=== PATIENT | male | born 1940 | race Two or more races ===

== ENCOUNTER 2021-09-06 08:50 | Outpatient (CLI) | payer MEDICARE, OTHER ==
[~2021-09-06 08:50] MED LIST: ATENOLOL; TRAM50TA2 PO
== END 2021-09-06 23:59 | disposition home or self-care (01) ==
LOC: WOU 08:50
PROVIDERS: ATTEND Specialist
DX: H91.21 Sudden idiopathic hearing loss, right ear (principal); R05.9 Cough, unspecified; I10 Essential (primary) hypertension
CPT/HCPCS: 71046; G0463